=== PATIENT | female | born 2000 | race Caucasian/White ===

== ENCOUNTER 2021-07-14 21:39 | Emergency (ER) | payer OTHER ==
[~2021-07-14] VITALS: Ht 162.6 cm; Wt 59.0 kg
[2021-07-14 21:40] VITALS: BP 132/86
[2021-07-14] MEDS ORDERED: EFFEXOR XR150 MG PO (21:46)
[2021-07-14] MEDS ORDERED: BIRTH CONTROL (21:46)
--- NOTE | 2021-07-15 10:47 | EKG ---
[place] [address] ELECTROCARDIOGRAM REPORT Name: ALISHA SWANSON Room: [facility]#: [id number] Admission: 07/14/21 Attend Phys: Discharge: 07/14/21 Date of : 89 Date of Service: 07/14/212150 Report #: [id number] THIS REPORT FOR: //name// [facility] ED Test Date: 2021-07-14 Test Time: 21:51:54 Pat Name: ALISHA SWANSON Department: Room: Gender: F Manager Maintenance: : 2000 Requested By: Rowena Phillips Order Number: [id number] MD: Heron Medina Measurements Intervals [place] Rate: 96 P: 67 HI: 147 QRS: 36 QRSD: 78 T: 35 QT: 325 QTc: 411 Interpretive Statements Sinus rhythm Low voltage, precordial leads No previous ECG available for comparison Electronically Signed On 07-15-2021 10:47:27 CDT by Heron Medina [email or web address] <ELECTRONICALLY SIGNED> By: Heron Medina MD, [facility] 07/15/21 1047 2151 [id number] Heron Medina MD, [facility] /EPI
== END 2021-07-14 23:00 | disposition left against medical advice (07) ==
LOC: M.ERS 21:39
DX: R10.9 Unspecified abdominal pain (principal); Z20.822 Contact with and (suspected) exposure to COVID-19; R11.0 Nausea; R51.9 Headache, unspecified; Z53.21 Procedure and treatment not carried out due to patient leaving prior to being seen by health care provider